=== PATIENT | male | born 1970 | race Caucasian/White ===

== ENCOUNTER 2018-11-09 11:57 | Outpatient (CLI) | payer BC ==
--- NOTE | 2018-11-09 13:55 | MRI ---
Cervical spine MRI with and without contrast: 11/09/2018 HISTORY: Cervical radiculopathy, cervical pain radiating down the left arm TECHNIQUE: Multiplanar multisequence MR imaging of the cervical spine is provided with and without co ntrast. FINDINGS: The sagittal STIR imaging demonstrates marrow edema centered at the right facet joint at C4 -5 and centered at the left facet joint at C2-3. There is anterior discectomy and fusion hardware at C6-7. C2-3: There is facet and uncovertebral osteophyte formation on the left with moderate left neural for aminal stenosis. No significant central canal or right neural foraminal stenosis. C3-4: There is disc space narrowing and disc desiccation with mild disc bulge partially effacing the ventral thecal sac. No significant central canal stenosis. There is bilateral facet and uncovertebral osteophyte formation with mild/moderate bilateral neural f oraminal stenosis. C4-5: There is disc desiccation and disc space narrowing. No significant central canal stenosis. Ther e is bilateral facet and uncovertebral osteophyte formation, right greater than left, with moderate right and mild left neural foraminal stenosis. C5-6: There is disc space narrowing, disc desiccation, and disc bulge with a small superimposed left paracentral disc protrusion. Mild bilateral facet and uncovertebral osteophyte formation. There is mild left neural foraminal stenosis. There is mild central canal stenosis, particularly laterally on the left. C6-7: Mild bilateral facet and uncovertebral osteophyte formation. No significant central canal steno sis. Mild right and moderate left neural foraminal stenosis. C7-T1: No significant central canal stenosis. Mild bilateral facet hypertrophy. Mild left neural fora lelo stenosis. Postcontrast imaging demonstrates no abnormal enhancement within the cervical spine. No focal area of abnormal signal intensity is identified within the cervical cord. IMPRESSION: Postoperative and degenerative change within the cervical spine as detailed above. There are areas of edema within facet joints as detailed above which may reflect inflammatory change or edema associated with prior facet joint injections. Clinical correlation required.
== END 2018-11-09 11:58 | disposition home or self-care (01) ==
LOC: BICMRI 11:57
PROVIDERS: ATTEND Family Medicine
DX: M54.12 Radiculopathy, cervical region (principal); M47.22 Other spondylosis with radiculopathy, cervical region; Z98.890 Other specified postprocedural states
CPT/HCPCS: 72156

== ENCOUNTER 2023-06-20 07:35 | Day surgery (SDC) | payer BC ==
[2023-06-19 12:41] VITALS: BMI 27.1
[2023-06-20] MEDS ORDERED: Acetaminophen 500 MG TAB ONE (07:52)
[2023-06-20] MEDS ORDERED: Sodium Chloride 0.9% 100 ML ONE (07:52)
[2023-06-20] MEDS ORDERED: Ketorolac Tromethamine 30 MG (1 mL) VIAL ONE (07:52)
[2023-06-20] MEDS ORDERED: CEFAZOLIN 2 GM VIAL ONE (07:52)
[2023-06-20] MEDS ORDERED: Midazolam HCl 2 mg/2 ml Vial ONE ×2 (08:21→10:43)
[2023-06-20] MEDS ORDERED: fentaNYL PF 100 MCG/2 ML SYRINGE ONE ×3 (10:24→12:26)
[2023-06-20] MEDS ORDERED: PROPOFOL 20 ML ONE (10:25)
[2023-06-20] MEDS ORDERED: Rocuronium Bromide 10 MG/ML (10ML VIAL) ONE (10:25)
[2023-06-20] MEDS ORDERED: Lidocaine 1% PF 5 ML VIAL ONE (10:25)
[2023-06-20] MEDS ORDERED: Dexamethasone 4 mg/ml Vial ONE (10:25)
[2023-06-20] MEDS ORDERED: Ondansetron PF 4 MG/2 ML Vial ONE ×2 (10:25→13:52)
[2023-06-20] MEDS ORDERED: fentaNYL 50 mcg/mL 1 mL Vial ONE (12:07)
[2023-06-20] MEDS ORDERED: Fentanyl 250 MCG/5 ML VIAL ONE (12:07)
[2023-06-20] MEDS ORDERED: SUGAMMADEX SODIUM 200 MG/2 ML VIAL ONE (12:49)
[2023-06-20] MEDS ORDERED: Bacitracin Zinc Ointment 30 gm TUBE ONE (12:53)
[2023-06-20] MEDS ORDERED: Bupivacaine 0.25% HCL 30 ML VIAL ONE (13:09)
[2023-06-20] MEDS ORDERED: EPINEPHrine 1 MG/ML VIAL ONE (13:09)
[2023-06-20] MEDS ORDERED: Morphine 4 MG/ML VIAL ONE (13:51)
[2023-06-20] MEDS ORDERED: Promethazine HCl 25 MG/ML VIAL ONE (14:06)
[2023-06-20] MEDS ORDERED: HYDROcodone/Acetaminophen 5/325 mg Tablet ONE (16:05)
[2023-06-20] MEDS ORDERED: Labetalol HCl 100 MG/20 ML VIAL ONE (16:06)
== END 2023-06-20 17:14 | disposition home or self-care (01) ==
LOC: SDC 07:35
PROVIDERS: ATTEND Specialist
PROC: 0WUF4JZ Supplement Abdominal Wall with Synthetic Substitute, Percutaneous Endoscopic Approach (ICD-10-PCS; principal; 2023-06-20)
DX: K43.2 Incisional hernia without obstruction or gangrene (principal); K42.9 Umbilical hernia without obstruction or gangrene; K43.9 Ventral hernia without obstruction or gangrene
CPT/HCPCS: A6258; C1781; J0171; J0665; J1100; J1885; J2250; J2270; J2405; J2550; J2704; J3010; J3490